=== PATIENT | female | born 1945 | race Caucasian/White ===

== ENCOUNTER 2016-09-02 17:04 | Emergency (ER) | payer OTHER ==
[2016-09-02 17:34] LABS: MANUAL DIFF NEEDED? NO
[2016-09-02 17:40] LABS: BASO% 0.5 % (0.0-0.8); EOS# 0.05 X1000 (0.0-0.7); EOS% 0.8 % (0.0-10.0); HEMOGLOBIN 12.7 g/dL (12.0-16.0); IMM GRAN# 0.04 X1000 (0.0-0.04); IMM GRAN% 0.6 % (0.0-0.5); LYMPH# 1.12 X1000 (1.2-3.4); LYMPH% 17.3 % (20.5-51.1); MCH 32.8 PG (27-31); MCHC 32.6 g/dL (33-37); MCV 100.8 FL (81-99); MONO# 0.54 X1000 (0.11-0.59); MONO% 8.3 % (1.7-9.3); NEUT% 72.5 % (42.2-75.2); PLT 234 X1000 (130-400); RBC 3.87 XMIL (4.2-5.4)
[2016-09-02 18:00] LABS: ALBUMIN 4.2 g/dL (3.5-5.0); CALCIUM 8.8 mg/dL (8.8-10.2); POTASSIUM 3.9 mmol/L (3.5-5.1); TOTAL BILIRUBIN 0.35 mg/dL (0.20-1.00); TOTAL PROTEIN 6.8 g/dL (6.3-8.3)
[2016-09-02 18:07] LABS: INR 1.01; PROTIME 10.3 Seconds (9.2-11.7); PTT 29.1 Seconds (22.0-36.0)
--- NOTE | 2016-09-02 18:11 | Diag Imaging Result Document ---
PROCEDURE NAME: HEAD W/O CONTRAST - 09/02/2016 STUDY: CT brain without. PROTOCOL: Dose reduction protocol. No parenchymal hemorrhage. No epidural or subdural hematoma. No subarachnoid hemorrhage. Mild microvascular ischemic changes. No hydrocephalus. No sinus opacification. IMPRESSION: 1. No hemorrhage. 2. Mild microvascular ischemic changes. A preliminary report was given at 5:45 p.m.
[2016-09-02 18:27] LABS: CK INDEX 3.9 (0.0-2.5); CK-MB 7.33 ng/mL (0.0-5.0)
--- NOTE | 2016-09-02 18:48 | PROVIDER DOCUMENTATION ---
HPI-Psychological Disorder - General Chief Complaint: Altered Mental Status Stated Complaint: AMS Time Seen by Provider: 09/02/16 18:19 Source: patient, family Allergies/Adverse Reactions: Patient Allergies Allergy/AdvReac Type Severity Reaction Status Date / Time Sulfa (Sulfonamide AdvReac HIVES Verified 09/02/16 18:47 Antibiotics) Home Medications: Home Medication List Medication Instructions Recorded Confirmed Last Taken Type Atenolol 100 mg PO DAILY 07/03/14 09/02/16 09/12/14 08:00 History Calcium Acetate [Phoslo] 1,334 mg PO TID CC #0 tablet 07/15/14 09/02/16 08:00 Rx Sitagliptin Phosphate [Januvia] 50 mg PO DAILY #0 07/15/14 09/02/16 09/11/14 21 :00 Rx Clonidine [Catapres] 2 tab PO BID 09/10/14 09/02/16 09/12/14 08:00 History EZETIMIBE/SIMVAstatin [Vytorin 1 each PO DAILY 09/10/14 09/02/16 09/11/14 21:00 History 10/20 mg] Hydralazine [Apresoline] 25 mg PO Q8HR 09/10/14 09/02/16 09/12/14 08:00 History Insulin Glargine [Lantus] 41 unit SUBQ DAILY 09/10/14 09/02/16 09/11/14 18:00 History Insulin Human Regular [Humulin R] 0 unit SUBQ DIRECTED 09/10/14 09/02/16 History Losartan Potassium 25 mg PO DAILY 09/10/14 09/02/16 09/12/14 08:00 History Nifedipine [Nifedipine ER] 90 mg PO DAILY 09/10/14 09/02/16 09/12/14 08:00 History Hydrocodone/Acetaminophen [[place] 1 each PO Q4H PRN PRN #20 tablet 09/12/1409/02 Unknown Rx 10-325 Tablet] - History of Present Illness-Psych Nature of Presenting Problem: Pt is a 71 yof who presents to ER by family with CC of AMS x"several weeks." Family reports that this am, pt became very diaphoretic, had a blood sugar of ( checked several hours after pt was awake). Family also reports that pt has had several episodes where pt is talking about people who do not exist, or are not in pt's family. On exam, pt was A/A/Ox3. Pt and family reports that pt is on dialysis, but was almost too disoriented to go (pt did attend dialysis though). Onset/Duration: reports: other ("several weeks") Timing: reports: still present, intermittent Severity: reports: mild Psychiatric Complaints: reports: altered mental status, confused, hallucinating , impaired concentration. denies: angry, agitated, depressed, frustrated, homicidal thoughts, insomnia, paranoid, suicidal ideation Substance Use: reports: none/never Previous psych related hospitalizations?: No Patient arrived by:: private car Similar Symptoms Previously?: No Recently seen or treated by another doctor?: No Review of Systems - Adult - REVIEW OF SYSTEMS - ADULT Constitutional: denies: chills, fever, fatique, night sweats, weight gain, weight loss Eyes: reports: no symptoms reported Ears, Nose, Mouth & Throat: reports: no symptoms reported Cardiovascular: reports: no symptoms reported Respiratory: reports: no symptoms reported Gastrointestinal: reports: no symptoms reported Genitourinary: reports: no symptoms reported Musculoskeletal: reports: no symptoms reported Integumentary: reports: no symptoms reported Neurological: reports: no symptoms reported Psychiatric: reports: other (confusion; disoriented). denies: anxiety, anti- depressant use, alcohol/drug dependence, depression, emotional problems, insomnia, panic attacks, suicidal thoughts Endocrine: reports: no symptoms reported Hematologic/Lymphatic: reports: no symptoms reported Allergic/Immunologic: reports: no symptoms reported All Other Systems: Reviewed and Negative Past History - Adult - PAST MEDICAL HISTORY-ADULT Review of Records: reports: Nursing Assessment Review, Medications Reviewed - IMMUNIZATION STATUS Childhood Immunizations: See Nurse Assessment Flu Vaccine: See Nurse Assessment Physical Exam-Psych Focus - Physical Exam-Psych Initial Vital Signs Reviewed: Yes Appearance: appropriate appearance, appropriate insight, neat, no apparent distress, no memory impairment, denies illness, alert. negative: anxious, combative, disheveled, impaired insight, impaired recent memory, impaired remote memory, lethargic, mild distress, moderate distress, severe distress, slow to respond Neurological: alert, normal mood/affect, calm, checkroom chief II-XII nml as tested, oriented x 3, responds to pain. negative: agitated, anxious, depressed affect, disoriented x 3, flat, no response to pain, withdraws to pain Behavior/Eye Contact/Speech: cooperative, good eye contact, normal speech. negative: avoids eye contact, refused to answer, threatening eye contact, decreased rate of speech, increased rate of speech, belligerent, compulsive, uncooperative Thoughts/Hallucinations: normal thought pattern, no apparent hallucination. negative: auditory hallucinations, visual hallucinations Respiratory: chest non-tender, lungs clear, normal breath sounds, no pleuratic chest pain, no respiratory distress, no accessory muscle use. negative: respiratory distress, wheezing Cardiovascular: normal peripheral pulses, regular rate, rhythm. negative: bradycardia, tachycardia, irregularly irregular Abdominal Exam: normal bowel sounds, non tender, soft. negative: abnormal bowel sounds, distended, tenderness, mass Integumentary: normal color, normal turgor, warm/dry. negative: abrasion(s), swelling, tenderness, warm Progress - PLAN OF CARE/RESULTS Progress/Plan/Lab Results: POC: Cardiac enzymes in 2 hours/ Head CT Vital Signs - 24 hr 09/02/16 17:05 Temperature 97.8 F Pulse Rate 68 Respiratory 18 Rate Blood Pressure 155/91 O2 Sat by Pulse 97 Oximetry Orders Category Date Time Status Finger Stick Blood Sugar (ED) DIRECTED Care 09/02/16 17:14 Active CHEST-PORTABLE [RAD] Stat Exams 09/02/16 18:20 Taken HEAD W/O CONTRAST [CT] Stat Exams 09/02/16 17:15 Completed ALCOHOL BLOOD Stat Lab 09/02/16 17:24 Completed CBC WITH ELECTRONIC DIFF [HEME] Stat Lab 09/02/16 17:24 Completed CK PROFILE [SP CHEM] Stat Lab 09/02/16 17:24 Completed CK PROFILE [SP CHEM] Stat Lab 09/02/16 19:22 Completed COMPREHENSIVE METABOLIC PANEL [CHEM] Stat Lab 09/02/16 17:24 Completed LACTATE, PLASMA [CHEM] Stat Lab 09/02/16 17:24 Completed PROTIME WITH INR [COAG] Stat Lab 09/02/16 17:24 Completed PTT [COAG] Stat Lab 09/02/16 17:24 Completed TROPONIN T Stat Lab 09/02/16 17:24 Completed TROPONIN T Stat Lab 09/02/16 19:22 Completed EKG [EKG] Stat Ther 09/02/16 17:14 Ordered EKG [EKG] Stat Ther 09/02/16 18:44 Ordered Laboratory Tests 09/02/16 09/02/16 09/02/16 17:24 17:24 17:24 WBC 6.48 RBC 3.87 L Hgb 12.7 Hct 39.0 MCV 100.8 H MCH 32.8 H MCHC 32.6 L RDW Std Deviation 15.1 H Plt Count 234 MPV 10.0 Immature Gran % (Auto) 0.6 H Neut % (Auto) 72.5 Lymph % (Auto) 17.3 L [place] % (Auto) 8.3 Eos % (Auto) 0.8 Baso % (Auto) 0.5 Immature Gran # (Auto) 0.04 Neut # (Auto) 4.70 Lymph # (Auto) 1.12 L [place] # (Auto) 0.54 Eos # (Auto) 0.05 Baso # (Auto) 0.03 PT INR PTT (Actin FS) Sodium 135 L Potassium 3.9 Chloride 92 L Carbon Dioxide 27 Anion Gap 16 BUN 16 Creatinine 2.8 H Estimated GFR/1.73 m2 17 BUN/Creatinine Ratio 6 Glucose 132 H Calculated Osmolality 273 Calcium 8.8 Total Bilirubin 0.35 AST 23 ALT 23 Alkaline Phosphatase 67 Creatine Kinase 189 H Creatine Kinase Index 3.9 H CK-MB (CK-2) 7.33 H Troponin T Total Protein 6.8 Albumin 4.2 Globulin 2.6 Albumin/Globulin Ratio 1.6 Plasma Lactate Plasma/Serum Ethyl Alc 09/02/16 09/02/16 09/02/16 17:24 17:24 17:24 WBC RBC Hgb Hct MCV MCH MCHC RDW Std Deviation Plt Count MPV Immature Gran % (Auto) Neut % (Auto) Lymph % (Auto) [place] % (Auto) Eos % (Auto) Baso % (Auto) Immature Gran # (Auto) Neut # (Auto) Lymph # (Auto) [place] # (Auto) Eos # (Auto) Baso # (Auto) PT 10.3 INR 1.01 PTT (Actin FS) 29.1 Sodium Potassium Chloride Carbon Dioxide Anion Gap BUN Creatinine Estimated GFR/1.73 m2 BUN/Creatinine Ratio Glucose Calculated Osmolality Calcium Total Bilirubin AST ALT Alkaline Phosphatase Creatine Kinase Creatine Kinase Index CK-MB (CK-2) Troponin T 0.094 H Total Protein Albumin Globulin Albumin/Globulin Ratio Plasma Lactate 1.0 Plasma/Serum Ethyl Alc 09/02/16 09/02/16 19:22 19:22 WBC RBC Hgb Hct MCV MCH MCHC RDW Std Deviation Plt Count MPV Immature Gran % (Auto) Neut % (Auto) Lymph % (Auto) [place] % (Auto) Eos % (Auto) Baso % (Auto) Immature Gran # (Auto) Neut # (Auto) Lymph # (Auto) [place] # (Auto) Eos # (Auto) Baso # (Auto) PT INR PTT (Actin FS) Sodium Potassium Chloride Carbon Dioxide Anion Gap BUN Creatinine Estimated GFR/1.73 m2 BUN/Creatinine Ratio Glucose Calculated Osmolality Calcium Total Bilirubin AST ALT Alkaline Phosphatase Creatine Kinase 172 Creatine Kinase Index CK-MB (CK-2) Troponin T 0.093 H Total Protein Albumin Globulin Albumin/Globulin Ratio Plasma Lactate Plasma/Serum Ethyl Alc - EKG 1 Time of EKG reading by physician:: 18:55 EKG Read and Signed by:: Scott Nolan EKG Interpretation (*Must complete 3 of following elements*): Abnormal ( Possible L atrial enlargement; LVH; Nonspecific ST & T wave abnormality) Rate: 70 Rhythm: NSR - CT/MRI 1 CT Study: Head Impression: See EMR Report CT Results: NAD Departure - Departure Time of Disposition Order: 20:25 DIAGNOSIS: Weakness Chronic renal failure Qualifiers: Chronic kidney disease stage: unspecified stage Qualified Code(s): N18.9 - Chronic kidney disease, unspecified Disposition: HOME 01 Certified Medical Emergency: Emergent Condition: Stable Additional Instructions: Follow up with Dr. Leyva and PCP. ED Follow Up Instructions: You have been treated by a care provider in the Emergency Department. These instructions are being provided to you so you can have an understanding of how to care for yourself upon discharge. Upon discharge from the Emergency Department, you are responsible for making arrangements for follow-up care by a physician of your choice. Take all prescribed medications as directed. Return to the Emergency Department immediately for any new or worsening symptoms. You may call the Physician Referral phone number at [phone] to obtain a list of Physicians who are taking new patients. Referrals: Chico Foley MD [Primary Care Provider] - Nati Leyva III, MD [STAFF PHYSICIAN] - Attestation - Scribe Verification/Attestation Scribe:: Kameron Peralta Acting as Scribe for:: Scott Nolan Scribe documention review:: This chart was documented by a scribe and accurately reflects the service the provider performed and the decisions made by the provider.
[2016-09-02 20:45] VITALS: BP 184/52
--- NOTE | 2016-09-03 10:36 | Diag Imaging Result Document ---
PROCEDURE NAME: CHEST-PORTABLE - 09/02/2016 PORTABLE CHEST: COMPARISON: 07/13/2014. FINDINGS: There is cardiomegaly which appears to have increased mildly. The lungs appear essentially clear. There is no pleural effusion or pneumothorax identified. The central venous catheter has been removed. IMPRESSION: Cardiomegaly with mild interval increase in heart size. No other evidence of acute disease.
--- NOTE | 2016-09-05 10:52 | EKG Report ---
Test Performed on : 09/02/2016 6:55:56 PM Test Reason : CP Blood Pressure : / mmHG Vent. Rate : 070 BPM Atrial Rate : 070 BPM P-R Int : 172 ms QRS Dur : 092 ms QT Int : 450 ms P-R-T Axes : 075 -20 021 degrees QTc Int : 486 ms Normal sinus rhythm. Possible Left atrial enlargement Left ventricular hypertrophy Nonspecific ST and T wave abnormality Abnormal ECG When compared with ECG of 02-SEP-2016 18:01, (Unconfirmed) No significant change was found Unconfirmed Result
--- NOTE | 2016-09-05 10:56 | EKG Report ---
Test Performed on : 09/02/2016 6:01:04 PM Test Reason : AMS Blood Pressure : / mmHG Vent. Rate : 072 BPM Atrial Rate : 072 BPM P-R Int : 168 ms QRS Dur : 098 ms QT Int : 456 ms P-R-T Axes : 039 -11 060 degrees QTc Int : 499 ms Normal sinus rhythm. Possible Left atrial enlargement Left ventricular hypertrophy Nonspecific ST and T wave abnormality Prolonged QT Abnormal ECG When compared with ECG of 02-SEP-2016 17:59, (Unconfirmed) No significant change was found Unconfirmed Result
== END 2016-09-02 20:47 | disposition home or self-care (01) ==
LOC: ED 17:04
DX: I12.0 Hypertensive chronic kidney disease with stage 5 chronic kidney disease or end stage renal disease (principal); N18.6 End stage renal disease; Z99.2 Dependence on renal dialysis; R53.1 Weakness; R41.82 Altered mental status, unspecified; R61 Generalized hyperhidrosis; R41.0 Disorientation, unspecified; R94.31 Abnormal electrocardiogram [ECG] [EKG]; Z79.899 Other long term (current) drug therapy; Z79.4 Long term (current) use of insulin
CPT/HCPCS: 36415; 70450; 71010; 80053; 82550; 82553; 83605; 84484; 85025; 85610; 85730; 93005; G0480; 80320

== ENCOUNTER 2016-09-08 02:35 | Inpatient (IN) ==
[2016-09-08] MEDS ORDERED: D50W SYRINGE ONE (02:46)
[2016-09-08] MEDS ORDERED: D50W SYRINGE IV ONE (02:49)
--- NOTE | 2016-09-08 02:51 | PROVIDER DOCUMENTATION ---
HPI-General Adult - General Source: patient - History of Present Illness -Gen Adult Nature of Presenting Problems: 71 y/o F presents to the ED by EMS with low blood sugar. Pt has recent hx of hypoglycemia. Pt was found her sister unresponsive and called EMS. On arrival Pt finger stick was 40 after D50 pt went up to 200. He blood pressure was 220/ 115 consistently with EMS through transportation. The first stick in the ED was 59. Pt states she ate dinner and took 20 of Lantus. Pt denies pain, SOB and headache Location of Pain/Injury: reports: none Quality of Pain: reports: none Onset/Duration: reports: just prior to arrival Similar Symptoms Previously?: Yes Recently seen or treated by another doctor?: No - Diabetes Related Context Context: reports: low blood sugar <Titi Potter - Last Filed: 09/08/16 02:46> <Scott Nolan - Last Filed: 09/08/16 04:00> - General Chief Complaint: Low Blood Sugar Stated Complaint: low blood sugar Time Seen by Provider: 09/08/16 02:35 Allergies/Adverse Reactions: Patient Allergies Allergy/AdvReac Type Severity Reaction Status Date / Time Sulfa (Sulfonamide AdvReac HIVES Verified 09/08/16 03:02 Antibiotics) Home Medications: Home Medication List Medication Instructions Recorded Confirmed Last Taken Type Clonidine [Catapres] 2 tab PO BID 09/10/14 09/08/16 09/07/16 20:00 History Hydralazine [Apresoline] 25 mg PO Q8HR 09/10/14 09/08/16 09/07/16 18:00 History Insulin Glargine [Lantus] 25 unit SUBQ DAILY 09/10/14 09/08/16 09/07/16 08:00 History Losartan Potassium 25 mg PO DAILY 09/10/14 09/08/16 09/07/16 09:00 History Nifedipine [Nifedipine ER] 90 mg PO DAILY 09/10/14 09/08/16 09/07/16 08:00 History Sevelamer Carbonate [Renvela] 800 mg PO TID 09/08/16 09/08/16 09/07/16 20:00 History Sitagliptin Phosphate [Januvia] 100 mg PO DAILY 09/08/16 09/08/16 09/07/16 08: 00 History Review of Systems - Adult - REVIEW OF SYSTEMS - ADULT Constitutional: denies: chills, fever Cardiovascular: denies: chest pain, edema Respiratory: denies: cough, shortness of breath, wheezing Gastrointestinal: denies: abdominal pain, nausea, vomiting Neurological: denies: dizziness/vertigo, headache/migraines All Other Systems: Reviewed and Negative <Titi Potter - Last Filed: 09/08/16 02:46> Past History - Adult - PAST MEDICAL HISTORY-ADULT Review of Records: reports: Old Records Reviewed, Nursing Assessment Review, Medications Reviewed Major Childhood Illnesses: reports: denies history - IMMUNIZATION STATUS Childhood Immunizations: See Nurse Assessment Flu Vaccine: See Nurse Assessment - SOCIAL HISTORY Smoking: non-smoker Substance Use: none/never Living Situation: alone <Titi Potter - Last Filed: 09/08/16 02:46> Physical Exam-General - PHYSICAL EXAM-ADULT Initial Vital Signs Reviewed: Yes - CONSTITUTIONAL General Appearance: alert, no apparent distress, other (sluggish) - EYES Eyes: PERRL/EOMI, pink conjunctivae - HEAD, EARS, NOSE, MOUTH & THROAT HENMT: moist mucous membranes, normal ENT inspection, TMs normal, pharynx normal - RESPIRATORY Respiratory: lungs clear, normal breath sounds, no pleuratic chest pain, no respiratory distress, no accessory muscle use - CARDIOVASCULAR Cardiovascular: normal peripheral pulses, regular rate, rhythm - GASTROINTESTINAL (ABDOMEN) Abdominal Exam: normal bowel sounds, non tender, soft - MUSCULOSKELETAL Back Exam: normal inspection, no CVA tenderness, no vertebral tenderness Extremity: normal range of motion, non-tender, normal gait, normal inspection - SKIN Integumentary: normal color, normal turgor, warm/dry - NEUROLOGIC Neurologic: grossly normal, no motor/sensory deficits - PSYCHIATRIC Psych/Mental Status: normal mood/affect, normal thought content, normal thought process, oriented x 3 <Titi Potter - Last Filed: 09/08/16 02:46> Progress - REASSESSMENT Reassessment #1 Time Reassessed: 03:59 (gcs=15) Status: improving - CONSULTS/PCP/HOSPITALIST Notification #1 *Consult/PCP/Hospitalist*: dr ernst Time Discussed: 03:59 Consult Disposition: Will see in ED <Scott Nolan - Last Filed: 09/08/16 04:00> Departure <Titi Potter - Last Filed: 09/08/16 02:46> - Departure Time of Disposition Order: 04:00 Certified Medical Emergency: Emergent <Scott Nolan - Last Filed: 09/08/16 04:00> - Departure DIAGNOSIS: Weakness, Chronic renal failure, Hypoglycemia, Hypertensive urgency Disposition: ADMITTED INPATIENT 09 Condition: Stable Attestation - Scribe Verification/Attestation Scribe:: Titi Potter Acting as Scribe for:: Scott Nolan Scribe documention review:: This chart was documented by a scribe and accurately reflects the service the provider performed and the decisions made by the provider. <Titi Potter - Last Filed: 09/08/16 02:46> Physician Attestation
[2016-09-08] MEDS ORDERED: NITROGLYCERIN SL PRN (03:01)
[2016-09-08] MEDS ORDERED: PRINIVIL PO ONE (03:27)
[2016-09-08] MEDS ORDERED: LABETALOL IV ONE (03:27)
[2016-09-08 03:28] LABS: MANUAL DIFF NEEDED? NO
[2016-09-08 03:32] LABS: BASO% 0.6 % (0.0-0.8); EOS# 0.08 X1000 (0.0-0.7); EOS% 1.2 % (0.0-10.0); HEMATOCRIT 40.6 % (37.0-47.0); HEMOGLOBIN 12.9 g/dL (12.0-16.0); IMM GRAN# 0.04 X1000 (0.0-0.04); IMM GRAN% 0.6 % (0.0-0.5); LYMPH# 0.81 X1000 (1.2-3.4); LYMPH% 12.4 % (20.5-51.1); MCH 32.8 PG (27-31); MCHC 31.8 g/dL (33-37); MCV 103.3 FL (81-99); MONO# 0.46 X1000 (0.11-0.59); MPV 10.3 FL (7.4-10.4); NEUT% 78.2 % (42.2-75.2); PLT 192 X1000 (130-400); RBC 3.93 XMIL (4.2-5.4)
[2016-09-08 03:44] LABS: INR 0.97; PROTIME 9.9 Seconds (9.2-11.7)
[2016-09-08 03:50] LABS: ALBUMIN 4.3 g/dL (3.5-5.0); CALCIUM 9.3 mg/dL (8.8-10.2); MAGNESIUM 2.3 mg/dL (1.5-2.7); POTASSIUM 3.6 mmol/L (3.5-5.1); TOTAL BILIRUBIN 0.3 mg/dL (0.20-1.00); TOTAL PROTEIN 7.2 g/dL (6.3-8.3)
[2016-09-08] MEDS ORDERED: CATAPRES PO ONE (04:04)
[2016-09-08] MEDS ORDERED: APRESOLINE IV ONE (05:14)
[2016-09-08] MEDS ORDERED: APRESOLINE ONE (05:15)
[2016-09-08] MEDS ORDERED: LR 0 ML ONE (05:43)
[2016-09-08] MEDS ORDERED: KEFZOL 1 GM/D5W 0 ML ONE (05:43)
[2016-09-08] MEDS ORDERED: DIPRIVAN 1% ONE (06:31)
[2016-09-08] MEDS ORDERED: FENTANYL ONE (06:31)
[2016-09-08] MEDS ORDERED: ZOFRAN IV PRN (07:39)
[2016-09-08] MEDS ORDERED: TYLENOL PO PRN (07:39)
--- NOTE | 2016-09-08 08:47 | Diag Imaging Result Document ---
PROCEDURE NAME: CHEST-1 VIEW - 09/08/2016 SINGLE FRONTAL RADIOGRAPH OF THE CHEST: COMPARISON: 09/02/2016. FINDINGS: Inspiration is suboptimal. There is increased central vasculature suggesting pulmonary venous congestion and, perhaps, mild perihilar interstitial edema. Otherwise, the lungs are clear. There is no definite pleural fluid collection. There is stable cardiomegaly. IMPRESSION: Suggestion of pulmonary venous congestion and, perhaps, mild interstitial edema.
--- NOTE | 2016-09-08 08:53 | ED EKG INTERP ---
EKG Interpretation - EKG Time of EKG reading by physician:: 06:23 EKG Read and Signed by:: Shayne Souza EKG Interpretation (*Must complete 3 of following elements*): Abnormal Rate: 69 Rhythm: nsr [place]: left (atrial enlargment) QRS: other (left ventricular hypertrophy) MS Interval: prolonged ST Wave: non-specific ST changes
--- NOTE | 2016-09-08 09:44 | HISTORY AND PHYSICAL ---
PRIMARY CARE PROVIDER: The patient states that her primary care provider is Dr. Brown in [place]. CHIEF COMPLAINT: Hypoglycemia. HISTORY OF PRESENT ILLNESS: Ms. Wayne is a 71-year-old female with a past medical history of end-stage renal disease currently on hemodialysis on Mondays, Wednesdays, and Fridays, hypertension, and diabetes mellitus. The patient was brought in to the ER early this morning at approximately 2:30. She was found at home unresponsive by her sister. They called EMS, who when they arrived on scene, found out patient had a fingerstick blood sugar of 20. She was given D50. Upon arrival, the patient was also found to have elevated blood pressure of 245/113. The patient was given one amp of D50 after her arrival to the ER due to her fingerstick blood sugar being low still and was given crackers and juice to eat. At this time, her blood sugar has improved and is currently 189. The patient reports that yesterday after she finished her dialysis treatment that she had to stay for a while and be evaluated due to her blood sugar being elevated. She reports that they gave her something at dialysis to bring this down. She reports that she went home, ate dinner, took her regular nighttime medications of Lantus 25 units and Januvia 100 mg p.o., and then she went to bed and was subsequently found later by her sister unresponsive. The patient was also given multiple medications in the ER to bring down her blood pressure which included Apresoline 10 mg IV, clonidine 0.2 mg p.o., labetalol 20 mg IV, and lisinopril 20 mg p.o. Her blood pressure at this time has greatly improved with the last pressure reading of 184/72. The patient denies any headache, dizziness, chest pain, shortness of breath, abdominal pain, nausea, vomiting, diarrhea, or constipation. She reports that her last bowel movement was yesterday. She denies any bloody or black stools. She denies any dysuria, reports that she does produce some urine still. She denies any pain, numbness, tingling, or swelling in extremities. At this time, we will admit the patient for further treatment of her hypoglycemia, hypertensive urgency, and end- stage renal disease. REVIEW OF SYSTEMS: A 14-point review of systems was conducted with the patient and all were negative except for pertinent positives mentioned in the above HPI. PAST MEDICAL HISTORY: 1. Diabetes mellitus. 2. Hypertension. 3. End-stage renal disease currently on hemodialysis Mondays, Wednesdays, and Fridays. PAST SURGICAL HISTORY: 1. Appendectomy. 2. Bilateral laser eye surgery. SOCIAL HISTORY: The patient denies any alcohol, tobacco, or illicit drug use. FAMILY HISTORY: The patient reports that her mother had a history of diabetes mellitus and that her father had a history of emphysema, and she also has a sister with diabetes mellitus, as well. ALLERGIES: The patient reports allergies to sulfa. HOME MEDICATIONS: 1. Clonidine 0.1 mg two tablets p.o. b.i.d. 2. Hydralazine 25 mg p.o. q.8 h. 3. Lantus 25 units subcutaneously daily. 4. Losartan 25 mg p.o. daily. 5. Nifedipine extended release 90 mg p.o. daily. 6. Renvela 800 mg p.o. t.i.d. 7. Januvia 100 mg p.o. daily. DIAGNOSTIC DATA/LABORATORY RESULTS: White blood cell count 6.54, hemoglobin 12.9, hematocrit 40.6, platelet count is 192. PT 9.9, INR 0.97. Sodium 142, potassium 3.6, chloride 98, bicarb 27, BUN 27, creatinine 4.3 with a GFR of 10, glucose 56 with a repeat of 189, calcium 9.3, magnesium 2.3. Liver function tests were within normal limits. CK 162, troponin 0.064. ProBNP 20,709. Chest x-ray, one view, showed suggestion of pulmonary venous congestion and perhaps mild interstitial edema. We have ordered an EKG though it is pending at this time and will await these results. PHYSICAL EXAMINATION: VITAL SIGNS: Temperature 97.2, heart rate 72, respirations 18, blood pressure 184/72, oxygen saturation 95% on room air. GENERAL: Ms. Wayne is a very pleasant 71-year-old female who is resting in the ER stretcher. She was awake, alert, and able to answers all questions appropriately. HEENT: Head is atraumatic, normocephalic. Pupils were equal, round, reactive to light, were 3 mm bilaterally and brisk. Subconjunctivae were pink. Oral mucosa was moist. Oropharynx was clear. NECK: Supple, trachea midline. CARDIOVASCULAR: The patient has normal S1, S2, no murmurs, gallops, or rubs appreciated with a regular rate and rhythm. PULMONARY: The patient has symmetrical chest expansion bilaterally. Lung sounds were clear to auscultation in bilateral full [place] except for there were some slight crackles noted in the left lung base. ABDOMEN: Soft, nontender, nondistended. Bowel sounds are present in all 4 quadrants. EXTREMITIES: No cyanosis, clubbing, or edema noted. Pulse, motor, and sensory were intact it the lower extremities, as well. Pedal pulses were 3+ bilaterally. INTEGUMENTARY: The patient's skin is pink, warm, dry, and intact. No lesions or sores noted. NEUROLOGICAL: The patient is alert and oriented x3. Cranial nerves 2-12 are grossly intact. ASSESSMENT AND PLAN: 1. Hypoglycemia. At this time, the patient's blood glucose has improved and is up to 189 at this time, though until her glucose stabilizes, we will hold her diabetic medications and will continue to follow. 2. End-stage renal disease on hemodialysis. We have placed a consult with Dr. Foley and will await his evaluation and further recommendations for management. 3. Hypertensive urgency. At this time, the patient blood pressure management has improved with medications given in the ER as listed above in the HPI. We will continue with her regular prescription blood pressure medicines and will continue to follow. 4. GI prophylaxis will be provided with Prilosec 20 mg p.o. daily. DVT prophylaxis will be provided with SCDs. The patient will be placed on the medical floor with telemetry. She will have vital signs q.4 h. with strict intake and output. She will be on a diabetic diet. Further orders and recommendations pending hospital course, diagnostic studies, and physician evaluation. DATE AND TIME OF HISTORY AND PHYSICAL: 09/08/2016 at 0545. Dictated by OMID Copeland for Naeem Strickland MD
[2016-09-08] MEDS: PRILOSEC PO SCH (09:57)
[2016-09-08] MEDS: RENAGEL PO SCH ×3 (09:57→16:33)
[2016-09-08] MEDS: CATAPRES PO SCH ×2 (09:58→20:27)
[2016-09-08] MEDS: APRESOLINE PO SCH ×2 (09:58→16:33)
--- NOTE | 2016-09-08 10:23 | EKG Report ---
Test Performed on : 09/08/2016 06:23:14 AM Test Reason : Chest Pain Blood Pressure : / mmHG Vent. Rate : 069 BPM Atrial Rate : 069 BPM P-R Int : 180 ms QRS Dur : 094 ms QT Int : 474 ms P-R-T Axes : 049 -15 034 degrees QTc Int : 507 ms Normal sinus rhythm. Possible Left atrial enlargement Left ventricular hypertrophy Nonspecific ST abnormality Prolonged QT Abnormal ECG When compared with ECG of 02-SEP-2016 18:55, Nonspecific T wave abnormality no longer evident in Anterior leads Unconfirmed Result
[2016-09-08] MEDS ORDERED: APRESOLINE PO ONE (17:00)
--- NOTE | 2016-09-08 17:35 | CONSULTATION ---
DATE OF CONSULTATION: 09/08/2016 REASON FOR CONSULTATION: Assistance with management. HISTORY OF PRESENT ILLNESS: Ms. Wayne is a 71-year-old white female with diabetes, hypertension, end-stage kidney disease. She has been doing very well on her hemodialysis for several years. Her presentation initially was very dramatic with hypothermia. She has had no problems until recently when her blood pressure and blood sugar have been disordered. She was found unresponsive and was hypoglycemic. Came to the emergency room where she was treated and has been admitted. She had a previous episode last week that was similar. She has not missed any dialysis. Again, her blood pressure has been hard to control. PAST MEDICAL HISTORY: As above. HOME MEDICATIONS: Include clonidine, hydralazine, insulin, losartan, nifedipine, Renvela, Januvia. ALLERGIES: Sulfa. SOCIAL HISTORY: She lives alone. No alcohol or tobacco. FAMILY HISTORY: Positive for diabetes but noncontributory. REVIEW OF SYSTEMS: Otherwise noncontributory. PHYSICAL EXAMINATION: Vital Signs: Blood pressure 230/71, heart rate 65, respiration 113, afebrile. General: She is a healthy-appearing woman who laughs too easily and is somewhat inappropriate. Skin: Warm and dry. HEENT: Conjunctivae are pink. Pupils are equal. Oropharynx is clear and moist. Normal dentition. Neck: Supple. Trachea is midline. No jugular venous distention. Heart: Regular without gallops or murmurs. Lungs: Have equal breath sounds. No crackles or wheezes. Abdomen: Soft, nontender. Bowel sounds are present. Extremities: Have trace edema. No clubbing or cyanosis. LABORATORY DATA: Reviewed. IMPRESSIONS: 1. Hypoglycemia. Improved. This will be managed by the primary team. 2. Altered sensorium. She is alert and oriented but somewhat inappropriate. Perhaps this is related to residual effects from her hypoglycemia or her hypertension. We will focus on blood pressure control and observe. She may need further evaluation. 3. End-stage kidney disease: She will have her routine hemodialysis.
--- NOTE | 2016-09-08 18:00 | PROGRESS NOTE ---
DATE: 09/08/2016 Ms. Wayne was admitted this morning. According to her, she did go to dialysis yesterday, glucose was high so she was given some insulin. Subsequently went home, and it looked like she did not have that much to eat, went to sleep, and then became unresponsive. Her sister who was staying with her heard her shout and then called 911. My understanding is when the emergency crew arrived she was altered and glucose was extremely low. Was given something for it. When she came into the emergency room over here, her blood glucose was about 59, her serum glucose was 56. The patient was subsequently resuscitated and her mentation improved. And she has been admitted for hypoglycemia. Her blood pressure has also been extremely high. ASSESSMENT: 1. Altered mental status secondary to metabolic encephalopathy from hypoglycemia. 2. Diabetes mellitus on insulin regimen. 3. Severe uncontrolled hypertension. 4. End stage renal disease on hemodialysis via a graft on the right upper extremity. PLAN: So our plan, we are going to continue with the current medications. We will possibly restart her insulin at a lower dose from tomorrow. The patient will continue with: 1. Losartan 100 mg daily. 2. Nifedipine 90 mg daily. 3. Clonidine 0.2 b.i.d. 4. Hydralazine 50 mg p.o. q.8h. I will add prazosin for alpha blockade on her medications and continue with close monitoring.
[2016-09-09] MEDS ORDERED: APRESOLINE PO SCH (01:00)
[2016-09-09] MEDS: PRILOSEC PO SCH (06:00)
[2016-09-09 06:39] LABS: MANUAL DIFF NEEDED? NO
[2016-09-09] MEDS ORDERED: HEPARIN IV PRN (06:42)
[2016-09-09] MEDS ORDERED: NS 2,000 ML MISC PRN (06:42)
[2016-09-09] MEDS ORDERED: TIGHT: 0.2 ML/HR MISC PRN (06:42)
[2016-09-09 06:52] LABS: EOS# 0.17 X1000 (0.0-0.7); EOS% 3.4 % (0.0-10.0); HEMATOCRIT 34.3 % (37.0-47.0); HEMOGLOBIN 10.8 g/dL (12.0-16.0); LYMPH# 0.85 X1000 (1.2-3.4); LYMPH% 17.2 % (20.5-51.1); MCH 32.1 PG (27-31); MCHC 31.5 g/dL (33-37); MCV 102.1 FL (81-99); MONO# 0.36 X1000 (0.11-0.59); MONO% 7.3 % (1.7-9.3); MPV 10.5 FL (7.4-10.4); NEUT% 71.1 % (42.2-75.2); PLT 167 X1000 (130-400); RBC 3.36 XMIL (4.2-5.4)
[2016-09-09 07:23] LABS: ALBUMIN 3.6 g/dL (3.5-5.0)
[2016-09-09 07:35] LABS: POTASSIUM 5.5 mmol/L (3.5-5.1)
[2016-09-09] MEDS ORDERED: HEPARIN ONE (08:06)
[2016-09-09] MEDS ORDERED: NS 2,000 ML ONE ×2 (08:07→13:44)
[2016-09-09] MEDS ORDERED: TRANDATE PO SCH (09:00)
[2016-09-09] MEDS ORDERED: COZAAR PO SCH ×2 (09:00)
[2016-09-09] MEDS ORDERED: DIOVAN PO SCH (14:15)
--- NOTE | 2016-09-09 14:28 | PROGRESS NOTE ---
DATE: 09/09/2016 TIME SEEN: 8:25. SUBJECTIVE: Ms. Wayne is currently resting quietly in bed. She has no complaints. States that she is feeling better. Denies chest pain or increased work of breathing. OBJECTIVE: Vital signs: Her most recent vital signs, her temperature 97.5 degrees, blood pressure 220/59, heart rate 59, respirations 20. She remains on room air. Last recorded saturation 97%. Input and output: She has had 440 in. She is in need of dialysis today. General: This is a 71-year-old white female. She is currently resting in bed. She has no acute distress. Skin: Warm and dry. HEENT: Normocephalic, atraumatic. Conjunctivae is pale. She has KRISTIE. Mucous membranes moist. Neck: Supple. Trachea midline. No JVD. Cardiovascular: Regular rate and rhythm. She is without murmur or gallop. Lungs: Clear to auscultation anteriorly. Equal excursion on room air. Abdomen: Round, soft, nontender. Positive bowel sounds. Genitourinary: Not inspected. Minimal void with dialysis assist. Extremities: Have no edema. No clubbing or cyanosis. She has a fistula to the right upper arm with good thrill. Neurological: Patient is alert to person and to place today. Endocrine: Hypoglycemia continues to improve. LABORATORY: This a.m., sodium 136, potassium 5.5, chloride 96, CO2 25, BUN 49, creatinine 6.3, glucose 178. Her anion gap is 15. Her calcium is 9, phosphorus 5.7, albumin 3.6. White count 4.94, hemoglobin 10.8, hematocrit 34.3, with a platelet count of 167,000. ASSESSMENT AND PLAN: 1. Hypoglycemic episode. This continues to be monitored and followed by the primary care team. 2. End-stage renal disease. Patient is due for her routine dialysis treatment today. We will place her on a 2K bath. She is to dialyze for 3.5 hours. We will attempt to pull patient to her dry weight. 3. Electrolytes with acid-base balance. She has mild hyperkalemia, again with correction on dialysis. 4. Altered sensorium. The patient is more focused today. 5. Hypertension, we have added hydralazine. She continued her losartan with increase. We will add labetalol today for blood pressure control and continue to monitor. I would to thank you for allowing us to follow with this patient. Seen, data reviewed, discussed with Paige Peñaloza on 09/09/16. I agree with the above assessment and plan of care. rg Dictated by OMID Venegas for Chico Foley MD MTDD
[2016-09-09] MEDS: RENAGEL PO SCH ×3 (15:49→19:31)
[2016-09-09] MEDS: ADALAT CC PO SCH (15:50)
[2016-09-09] MEDS: CATAPRES PO SCH ×2 (15:50→21:16)
[2016-09-09] MEDS: APRESOLINE PO SCH ×2 (15:51→19:32)
--- NOTE | 2016-09-09 18:01 | PROGRESS NOTE ---
DATE: 09/09/2016 SUBJECTIVE: This patient states that she is feeling much better. She is not complaining of any specific problems right now. The blood pressure is still high and even though we have been modifying her medications, Cardiology Department has been consulted and they increased the dose of the losartan. OBJECTIVE: Vital Signs: Temperature at noon 97.7, pulse 61, respiratory rate 20 and blood pressure 212/67, oxygen saturation 97 room air and like I said that was at noon. I do not have a new report. HEENT: Head normocephalic. No trauma. PERRLA. Neck: Supple. No JVD. No masses. Central trachea. Chest: Clear to auscultation. No wheezing. No rales. Abdomen: Soft, nontender, nondistended. No hepatosplenomegaly. Extremities: No edema. No clubbing. No cyanosis. Neurological: The patient is alert and oriented x3. No focal neurological deficits. LABORATORY: WBC 4.9, hemoglobin 10.8, hematocrit 34.3, platelets 167,000. Sodium 136, potassium 5.5, chloride 96, bicarbonate 25, BUN 49, creatinine 6.3, glucose 178, calcium 7.8, phosphorus 5.7, albumin 3.6. ASSESSMENT AND PLAN: 1. Altered mental status secondary to hypoglycemia, resolved. 2. Severe uncontrolled hypertension, we have been modifying her medications, Cardiology Department increased the losartan and will monitor. 3. Type 2 diabetes on insulin regimen. Apparently she used to be at home on 30 of Lantus before bed and that was modified to 25 before bed. She has an episode of severe hypoglycemia, as per the sister the blood sugar was around 20 and the patient was confused so this is why they came to the emergency department. At this moment the blood sugar is better controlled but I decreased the dose of Lantus from 25 to 10 and I will monitor the blood sugar in the morning. 4. End-stage renal disease on hemodialysis, nephrology department is on board and this patient is getting dialysis today.
--- NOTE | 2016-09-09 18:17 | CONSULTATION ---
DATE OF CONSULTATION: 09/09/2016 CARDIOLOGY CONSULTATION: IMPRESSION: 1. Severe hypertension, difficult to control. 2. Current hospitalization following severe hypoglycemic episode. Patient may have had a previous episode in the recent past as well. 3. End-stage renal disease requiring chronic hemodialysis. 4. Hyperlipidemia. 5. Diabetes mellitus requiring insulin for control. RECOMMENDATIONS: 1. Given that patient has persistent bradycardia with heart rate in the 50 beat per minute range and has not received beta-magno in over 24 hours, coupled with recent problems with hypoglycemic episodes, it may be better to limit beta-magno use at this point, unless required to achieve control of blood pressure. 2. Favor switching to more potent ARB. 3. Continue hydralazine and titrate upward. 4. Continue long-acting dihydropyridine calcium channel antagonist. 5. Continue clonidine for the present. HISTORY OF PRESENT ILLNESS: This 71-year-old, white female, with past history of diabetes mellitus requiring insulin, hypertension, and end-stage renal disease, was admitted recently following episode of unresponsiveness related to severe hypoglycemic episode. She may have had a previous episode in the recent past. She has had recent difficulty with difficult to control blood pressure as well as difficult blood sugar control. She has demonstrated markedly elevated blood pressure despite current regimen and adjustments are being made in her antihypertensive regimen. To assist with control of her blood pressure, Cardiology was consulted. PAST MEDICAL HISTORY: 1. Diabetes mellitus requiring insulin for control. 2. Hypertension. 3. End-stage renal disease requiring chronic hemodialysis. 4. Hyperlipidemia. 5. History of negative screening studies for coronary artery disease in the past with last stress myocardial perfusion study in 2014. 6. History of hypothermia episode 3 years ago. 7. History of previous atrial fibrillation. PAST SURGICAL HISTORY: Includes appendectomy and breast biopsy. CURRENT MEDICATIONS: As listed. SOCIAL HISTORY: She is . She does not use alcohol. She does not smoke. FAMILY HISTORY: Negative for premature coronary artery disease. REVIEW OF SYSTEMS: Pulmonary: Negative for dyspnea. Gastrointestinal: Negative. Constitutional: Negative. Beyond history of present illness, remainder of review of systems negative/noncontributory with 14 total systems reviewed. PHYSICAL EXAMINATION: General Appearance: Is a pleasant, older white female, in no distress. Vital Signs: Blood pressure 220/59, heart rate 57 and regular. HEENT Exam: Extraocular movements intact. Mucous membranes are moist. Neck: Supple. No jugular venous distention. There are no carotid bruits. Chest: Clear to auscultation bilaterally. Cardiac Exam: A regular bradycardia without appreciable murmur or gallop. Abdomen: Soft, nontender. Bowel sounds are normal. Extremities: Without edema. Neurologic Exam: Reveals her to be alert and fully responsive. She moves all 4 extremities equally well. Speech is fluent. DIAGNOSTIC DATA: ECG demonstrates sinus rhythm, borderline prolonged QT interval.
[2016-09-09] MEDS ORDERED: LANTUS SUBQ SCH (21:00)
[2016-09-10] MEDS: APRESOLINE PO SCH ×3 (00:20→17:36)
[2016-09-10] MEDS: PRILOSEC PO SCH (06:16)
[2016-09-10 07:04] LABS: MANUAL DIFF NEEDED? NO
[2016-09-10 07:10] LABS: BASO% 0.6 % (0.0-0.8); EOS# 0.13 X1000 (0.0-0.7); EOS% 2.8 % (0.0-10.0); HEMATOCRIT 34.5 % (37.0-47.0); HEMOGLOBIN 10.9 g/dL (12.0-16.0); LYMPH# 0.77 X1000 (1.2-3.4); LYMPH% 16.4 % (20.5-51.1); MCH 32.2 PG (27-31); MCHC 31.6 g/dL (33-37); MCV 101.8 FL (81-99); MONO# 0.41 X1000 (0.11-0.59); MONO% 8.7 % (1.7-9.3); MPV 10.7 FL (7.4-10.4); NEUT% 71.5 % (42.2-75.2); PLT 173 X1000 (130-400); RBC 3.39 XMIL (4.2-5.4)
[2016-09-10 07:45] LABS: CALCIUM 8.7 mg/dL (8.8-10.2); POTASSIUM 4.3 mmol/L (3.5-5.1)
[2016-09-10] MEDS: RENAGEL PO SCH ×3 (10:41→17:37)
[2016-09-10] MEDS: CATAPRES PO SCH ×2 (10:42→21:36)
[2016-09-10] MEDS: DIOVAN PO SCH (10:42)
[2016-09-10] MEDS: ADALAT CC PO SCH (10:42)
--- NOTE | 2016-09-10 13:04 | PROGRESS NOTE ---
DATE: 09/10/2016 SUBJECTIVE: She is feeling well today without any complaint. Blood pressure remains high. OBJECTIVE: Vital signs: Blood pressure 223/81, heart rate 60, respiration 20, afebrile. General: She is in no acute distress. Skin: Warm and dry. HEENT: Conjunctivae are pink. Neck: Neck veins are not distended. Heart: Regular. Lungs: Lungs have equal breath sounds. No crackles. Abdomen: Soft, nontender. Bowel sounds present. Extremities: Extremities have trace edema. No clubbing or cyanosis. LABORATORY DATA: Sodium 136, potassium 4.3, chloride 95, bicarbonate 27, BUN 29, creatinine 4.5, hemoglobin 10.9. IMPRESSION: 1. End-stage kidney disease: She had a routine dialysis yesterday. No plans over the weekend. 2. Acid-base/electrolytes/anemia: All in target. 3. Hypertension: Remains out of control. Both Cardiology and I have been making adjustments so I will defer to them and allow them to manage that problem so we minimize our confusion.
--- NOTE | 2016-09-10 16:33 | PROGRESS NOTE ---
DATE: 09/10/2016 SUBJECTIVE: This patient states that she is feeling good. She has no complaints today. The blood pressure today in the morning was high above 200 but she started getting her new scheduled medications today and the blood pressure at noon decreased to 156/66, we are going to monitor her blood pressure for these 24 hours and we will readjust her medications accordingly, like I mentioned before she has no complaints today. OBJECTIVE: Vital Signs: Temperature 97.8 degrees, pulse 62, respiratory rate 21, blood pressure 156/66, oxygen saturation 96 on room air. HEENT: Head normocephalic. No trauma. PERRLA. Neck: Supple. No JVD. No masses. Central trachea. Chest: Clear to auscultation. No wheezing. No rales. Abdomen: Soft, nontender, nondistended. No hepatosplenomegaly. Cardiovascular: RRR. No murmurs. Extremities: No edema. No clubbing. No cyanosis. Neurological: The patient is alert and oriented x3. No focal neurological deficits. LABORATORY: WBC 4.6, hemoglobin 10.9, hematocrit 34.5, platelets 173,000. Sodium 136, potassium 4.3, chloride 95, bicarbonate 27, BUN 29, creatinine 4.5, glucose 199 and calcium 8.7. ASSESSMENT AND PLAN: 1. Altered mental status secondary to hypoglycemia resolved. 2. Severe uncontrolled hypertension. Today we started her new scheduled medications, Cardiology Department and Nephrology Department have been following this patient. The blood pressure looks better controlled today is around 150s the systolic blood pressure. Will continue to monitor for 24 hours and we will readjust accordingly. 3. Type 2 diabetes on insulin, yesterday I restarted this patient on a lower dose of insulin. I put her just on 10 units and the glucose is a little bit elevated, I will increase the dose from 10 to 15 and I will continue with sliding scale protocol. 4. End-stage renal disease on hemodialysis, Nephrology Department is on board and they are taking care of this patient.
[2016-09-10] MEDS ORDERED: INSULIN PEN NEEDLES ONE (17:16)
[2016-09-10] MEDS: LANTUS SUBQ SCH ×2 (17:22→21:36)
[2016-09-10] MEDS: HUMULIN R SUBQ SCH ×2 (18:58→21:36)
[2016-09-11] MEDS: APRESOLINE PO SCH (04:21)
[2016-09-11 05:33] LABS: MANUAL DIFF NEEDED? NO
[2016-09-11 05:44] LABS: BASO% 0.5 % (0.0-0.8); EOS# 0.17 X1000 (0.0-0.7); EOS% 2.6 % (0.0-10.0); HEMATOCRIT 34.8 % (37.0-47.0); HEMOGLOBIN 11.3 g/dL (12.0-16.0); IMM GRAN# 0.02 X1000 (0.0-0.04); IMM GRAN% 0.3 % (0.0-0.5); LYMPH# 0.78 X1000 (1.2-3.4); MCH 32.8 PG (27-31); MCHC 32.5 g/dL (33-37); MCV 101.2 FL (81-99); MONO# 0.56 X1000 (0.11-0.59); MONO% 8.6 % (1.7-9.3); MPV 10.7 FL (7.4-10.4); PLT 178 X1000 (130-400); RBC 3.44 XMIL (4.2-5.4)
[2016-09-11] MEDS: HUMULIN R SUBQ SCH ×2 (06:25→12:24)
[2016-09-11] MEDS: PRILOSEC PO SCH (06:31)
[2016-09-11 09:02] LABS: CALCIUM 9.1 mg/dL (8.8-10.2); POTASSIUM 5.1 mmol/L (3.5-5.1)
[2016-09-11] MEDS: ADALAT CC PO SCH (10:22)
[2016-09-11] MEDS: RENAGEL PO SCH ×2 (10:22→12:30)
[2016-09-11] MEDS: DIOVAN PO SCH (10:23)
[2016-09-11] MEDS: CATAPRES PO SCH (10:23)
[2016-09-11] MEDS ORDERED: BLISTEX MEDICATED BERRY LIP BALM TOP PRN (11:38)
[2016-09-11] MEDS ORDERED: APRESOLINE PO SCH (12:00)
[2016-09-11 14:42] VITALS: BP 160/48
--- NOTE | 2016-09-11 21:23 | DISCHARGE SUMMARY ---
ADMISSION DATE: 09/08/2016 DISCHARGE DATE: 09/11/2016 DISCHARGE DIAGNOSES: 1. Hypoglycemia, resolved. 2. Hypertensive urgency, resolved. 3. End-stage renal disease, on hemodialysis Monday, Monday, and Monday. 4. Type 2 diabetes. CONSULTS: Cardiology Department and Nephrology Department. HOSPITAL COURSE: A 71-year-old, female, past medical history of end-stage renal disease on hemodialysis on Monday, Monday, and Monday, hypertension and diabetes. She was admitted on 09/08/2016 because she was found at 2:30 a.m. approximately unresponsive by her sister. She called EMS and they found out the patient had a fingerstick blood sugar of around 20. She was given D50. Upon arrival, the patient was found to have a blood pressure around 245/113. The patient was given 1 amp again of D50 after her arrival to the ED because her blood sugar was still low, but later improved and was 189. She also states that her Lantus was decreased from 30 to 25 and that her blood sugar were has been constantly elevated. She was treated in the emergency department and the blood pressure went down to 184/72. She was hospitalized to the medical floor with telemetry. Nephrology Department and Cardiology Department were consulted. She had dialysis as scheduled and the blood pressure was management by both Nephrology and Cardiology. Today the blood pressure is much better. She is not having any episodes of hypoglycemia. She will be discharged home with a lower dose of Lantus, 15 units daily and I stopped the Januvia because of the risk of hypoglycemia. Followup by her primary care primary care doctor and continue dialysis as scheduled. DISCHARGE EXAMINATION: Vital signs: Temperature 98.6 degrees, pulse 61, respiratory rate 21, blood pressure 160/48, O2 saturation 97% on room air. HEENT: Head normocephalic. No trauma. PERRLA. Neck: Supple. No JVD. No masses. Central trachea. Chest: Clear to auscultation. No wheezing. No rales. Abdomen: Soft, nontender, nondistended. No hepatosplenomegaly. Extremities: No edema. No clubbing. No cyanosis. Neurological: The patient was alert and oriented x3. No focal neurological deficits. LABORATORY: WBC 6.5, hemoglobin 11.3, hematocrit 34.8, platelets 178. Sodium 135, potassium 5.1, chloride 92, bicarbonate 25, BUN 50, creatinine 6.2, glucose 88, calcium 9.1. DISCHARGE MEDICATIONS: Sevelamer 800 mg p.o. t.i.d., nifedipine 90 mg p.o. daily, clonidine 0.2 mg daily, valsartan 160 mg p.o. daily, omeprazole 20 mg p.o. daily, nitroglycerin 0.4 mg subcutaneous q.5 minutes p.r.n., insulin glargine 15 units subcuticular at bedtime and hydralazine 100 mg p.o. q.8 hours.
== END 2016-09-11 15:55 | disposition home or self-care (01) | DRG 637 ==
LOC: EDBD → SUPCPDRO 02:35 → ED 02:35 → EDIPHOLD 07:24 → 3N 14:07
PROVIDERS: ATTEND Internal Medicine
PROC: 5A1D00Z (ICD-10-PCS; principal; 2016-09-09)
DX: E11.649 Type 2 diabetes mellitus with hypoglycemia without coma (principal); G93.41 Metabolic encephalopathy; I12.0 Hypertensive chronic kidney disease with stage 5 chronic kidney disease or end stage renal disease; N18.6 End stage renal disease; E11.22 Type 2 diabetes mellitus with diabetic chronic kidney disease; E87.5 Hyperkalemia; Z99.2 Dependence on renal dialysis; I16.0 Hypertensive urgency; Z83.3 Family history of diabetes mellitus; E78.5 Hyperlipidemia, unspecified; D64.9 Anemia, unspecified; Z79.84 Long term (current) use of oral hypoglycemic drugs; Z79.4 Long term (current) use of insulin; Z79.899 Other long term (current) drug therapy
CPT/HCPCS: 36415; 71010; 80048; 80053; 80069; 82550; 82948; 83735; 83880; 84484; 85025; 85610; 93005; 94761; 96374; 96375; J0360; J0690; J1644; J3010; J7030; J7120